=== PATIENT | female | born 1985 | race Caucasian/White ===

== ENCOUNTER 2018-09-22 07:53 | Emergency (ER) | payer BC, OTHER ==
[~2018-09-22] VITALS: Ht 167.6 cm; Wt 72.7 kg
[~2018-09-22 07:53] MED LIST: MULT-785 PO; ZOF4T PO
[2018-09-22] MEDS ORDERED: ondansetron/PF 4mg/2ml inj IV ONE (08:00)
[2018-09-22] MEDS ORDERED: normal saline 1000ML IV soln IVB ONE ×2 (08:20→12:30)
[2018-09-22] MEDS ORDERED: dexamethasone sod phosphate 10mg/ml inj IV STA (08:42)
--- NOTE | 2018-09-22 08:44 | NUR ---
unable to complete orthostatic VS due to patient discomfort with sitting up in bed. Dr. Shetty notified, awaiting orders.
[2018-09-22] MEDS ORDERED: ketorolac tromethamine 15mg/ml inj. IV ONE (08:45)
[2018-09-22] MEDS ORDERED: proCHLORperazine 10 MG/2 ml inj IV ONE (08:45)
[2018-09-22] MEDS ORDERED: SUMAtriptan succ. 6 MG/0.5ml vial SQ ONE (08:45)
[2018-09-22] MEDS ORDERED: diphenhydrAMINE 50 mg/ml inj IV ONE (08:45)
--- NOTE | 2018-09-22 08:58 | NUR ---
Patient to CT.
--- NOTE | 2018-09-22 11:13 | NUR ---
Patient ambulated to restroom with steady gait.
[2018-09-22] MEDS ORDERED: MECL-111 PO ×2 (13:51→14:32)
[2018-09-22] MEDS ORDERED: SUMA25TA35 PO ×2 (13:51→14:33)
[2018-09-22] MEDS ORDERED: PROC5TAB56 PO ×2 (13:51→14:32)
[2018-09-22 14:38] VITALS: BP 108/73
== END 2018-09-22 14:39 | disposition home or self-care (01) ==
LOC: ER 07:53
DX: I95.1 Orthostatic hypotension (principal); R42 Dizziness and giddiness; Z98.51 Tubal ligation status; Z79.899 Other long term (current) drug therapy; Z88.8 Allergy status to other drugs, medicaments and biological substances
CPT/HCPCS: 70450; 93005; 96361; 96372; 96374; 96375; 99284; J0780; J1100; J1200; J1885; J2405; J7030; J3030

== ENCOUNTER 2019-04-16 09:56 | Outpatient (CLI) | payer OTHER ==
[~2019-04-16 09:56] MED LIST changes: +MECL-111 PO; +PROC5TAB56 PO; +SUMA25TA35 PO
== END 2019-04-16 23:59 | disposition home or self-care (01) ==
LOC: RAD 09:56
PROVIDERS: ATTEND Family Medicine
DX: M79.672 Pain in left foot (principal)
CPT/HCPCS: 73610; 73630